=== PATIENT | male | born 1955 | race Caucasian/White ===

== ENCOUNTER → 2019-09-08 | Outpatient (CLI) | payer OTHER ==
--- NOTE | 2019-09-08 09:26 | MRI ---
EXAM DESCRIPTION: Lumbar Spine w/o Contrast : Magnetic Resonance Imaging. CLINICAL HISTORY: RADICULOPATHY COMPARISON: None. TECHNIQUE: Multiplanar, multiple standard sequences, non contrast MRI, lumbar spine. FINDINGS: L5-S1: The disc is well visualized on axial T2 series 501, image 3. Moderate disc space loss with disc desiccation. Anterior bulging and spurs. Diffuse endplate reactive changes are moderate. 3 mm grade 1 retrolisthesis. Prior partial laminectomy. Posterior midline bulge 4 mm. Narrowing of the subarticular recesses more right than left. Hypertrophic degenerative changes in the bilateral facet joints and left ligamentum flavum (canal elements) AP canal diameter 10 mm. Mild left foraminal stenosis and moderate right foraminal stenosis. L4-L5: Disc desiccation and minimal disc space loss. More on the right side with moderate endplate reactive changes. Minimal disc spur complex bulging into the foramina bilaterally. Minimal posterior decompression. Degenerative hypertrophy of the bilateral facet joints. Moderate foraminal narrowing bilaterally. L3-L4: Disc desiccation with minimal anterior bulge and minimal disc space loss. Minimal posterior bulging. Degenerative hypertrophy of the canal elements. AP canal diameter 12 mm. Mild left foraminal narrowing and moderate right foraminal narrowing. L2-L3: Normal signal in the disc with disc space preserved. Mild to moderate hypertrophy of the canal elements. Significant narrowing of the transverse canal diameter. AP canal diameter 9 mm. Mild bilateral foraminal narrowing. L1-L2: Disc space preserved with normal signal in the disc. Mild degenerative hypertrophy of the canal elements with moderate narrowing of the transverse diameter of the canal and mild to moderate AP canal narrowing. Bilateral foramina are patent. Conus terminates just above the disc space. T12-L1: Normal signal in the disc and disc space maintained. No bulging. Canal elements unremarkable. Foramina and canal are patent. Minimal lumbosacral levoscoliosis. Paravertebral soft tissues minimal paraspinal muscle atrophy.. Distal cord normal signal and caliber. Normal marrow signal in the remaining vertebral bodies and the posterior elements. Vertebral bodies are not compressed at any level. IMPRESSION: 1. Spondylosis, disc desiccation and disc space loss, disc spur complex formation and degenerative hypertrophy of the flavum ligaments and facet joints, particularly L3-4 down to L5-S1. 2. Moderate spondylosis L5-S1 and disc desiccation and disc space loss. Prior partial right laminectomy and decompression. Bilateral foraminal stenosis and encroachment on bilateral L5 nerve roots, and right subarticular recess narrowing or stenosis with possible involvement of the descending right S1 nerve. 3. Multifactorial mild central canal stenosis L2-L3. Electronically signed by: Scott Shah MD 09/08/2019 9:24 AM CDT
== END ==
LOC: MRI 06:50
PROVIDERS: ATTEND Psychiatry & Neurology Neurology
DX: M47.26 Other spondylosis with radiculopathy, lumbar region (principal); M51.36 Other intervertebral disc degeneration, lumbar region; M25.78 Osteophyte, vertebrae; M47.897 Other spondylosis, lumbosacral region; M48.061 Spinal stenosis, lumbar region without neurogenic claudication; Z98.890 Other specified postprocedural states

== ENCOUNTER → 2019-12-22 | Outpatient (CLI) | payer OTHER ==
--- NOTE | 2019-12-22 12:30 | RAD ---
EXAM DESCRIPTION: Pelvis x-ray one view CLINICAL HISTORY: 64 years Male, HIP PAIN RIGHT AND LEFT COMPARISON: None. FINDINGS: Degenerative narrowing of the disc spaces. Enthesopathy of the iliac crests. Degenerative narrowing of the SI joints and pubic symphysis. Moderate narrowing of the hip joints bilaterally with spurring at the inferior acetabular margins. No hip fracture or dislocation. IMPRESSION: Degenerative changes as described. Electronically signed by: Zafar Urena MD 12/22/2019 12:29 PM CDT
--- NOTE | 2019-12-22 12:33 | RAD ---
EXAM DESCRIPTION: Knee x-ray,Left Complete four views CLINICAL HISTORY: 64 years, Male, PAIN IN LEFT KNEE COMPARISON: None TECHNIQUE: Four x-ray views of the left knee standing FINDINGS: No fracture or dislocation. Bones appear normally mineralized with normal trabecular pattern. Narrowed appearance of medial compartment on frontal view with medial and lateral joint line spurring and spurring at the intracondylar notch and tibial spine. Lateral view shows normal position of the patella. Marked narrowing of the patellofemoral joint with posterior patellar spurring and anterior femoral trochlear spurring. Anterosuperior patellar enthesopathy. Small suprapatellar knee joint effusion. Normal contour of quadriceps and patellar tendons. 45 degree flexion view shows complete cartilage loss in the medial compartment with sclerosis and eburnation. Patellar sunrise view shows normal position of the patella with no abnormal subluxation. Prominent spurring of the posterior patella along the medial and lateral margins. Prominent anterior femoral trochlear marginal osteophyte formation especially medially. IMPRESSION: Advanced osteoarthrosis as described. Electronically signed by: Zafar Urena MD 12/22/2019 12:32 PM CDT
--- NOTE | 2019-12-22 12:43 | RAD ---
EXAM DESCRIPTION: Knee x-ray, Right Complete four views CLINICAL HISTORY: 64 years, Male, PAIN IN RIGHT KNEE COMPARISON: None TECHNIQUE: Four x-ray views of the right knee standing FINDINGS: No fracture or dislocation. Bones appear normally mineralized with normal trabecular pattern. Narrowed appearance of medial compartment on frontal view with spurring at the tibial spine. Lateral view shows normal position of the patella. Anterosuperior patellar enthesopathy with minimal posterior superior spurring No suprapatellar knee joint effusion. Normal contour of quadriceps and patellar tendons. Slight lateral patellar tilt without subluxation on patellar sunrise view. Spurring at the medial and lateral margins of the patella. IMPRESSION: Degenerative osteoarthrosis of the right knee. Electronically signed by: Zafar Urena MD 12/22/2019 12:42 PM CDT
== END | disposition home or self-care (01) ==
LOC: RAD 07:38
PROVIDERS: ATTEND Orthopaedic Surgery
DX: M25.561 Pain in right knee (principal); M25.562 Pain in left knee; M25.551 Pain in right hip; M25.552 Pain in left hip

== ENCOUNTER → 2020-01-19 | Outpatient (CLI) | payer OTHER | LOC: LAB.O 09:54 | PROVIDERS: ATTEND Orthopaedic Surgery | DX: Z01.818 Encounter for other preprocedural examination (principal) ==

== ENCOUNTER → 2020-01-29 | Outpatient (CLI) | payer OTHER | LOC: ECHO 09:05 | PROVIDERS: ATTEND Family Medicine | DX: R94.31 Abnormal electrocardiogram [ECG] [EKG] (principal); I51.7 Cardiomegaly ==

== ENCOUNTER 2020-05-01 11:09 | Emergency (ER) | payer OTHER ==
[2020-05-01 11:36] VITALS: BP 159/81; TEMP 98.9
[2020-05-01] MEDS ORDERED: KETOROLAC TROMETHAMINE INJ 30 MG/ML VIAL IM ONE (11:48)
--- NOTE | 2020-05-01 12:16 | RAD ---
EXAMINATION: Chest,1 View (accession [id number]), Shoulder,Left 2 or More Views (accession [id number]). HISTORY: 64 years Male. left clavicle pain s/p fall. . TECHNIQUE: XR CHEST 1 VIEW, XR SHOULDER 2 VIEWS COMPARISON: None. FINDINGS: LEFT SHOULDER: AC joint: Degenerative arthrosis with articular surface irregularity and marginal hypertrophy. Glenohumeral joint: No significant abnormality. Acromiohumeral interval: Degenerative cortical remodeling at undersurface of the acromion and the superior margin of the greater tuberosity. No acute fracture or dislocation is evident. IMPRESSION: No definite radiographic evidence of acute skeletal pathology Multifocal slight degenerative change CHEST: Severely limited examination due to very prominent soft tissue attenuation. The cardiac silhouette size is moderately enlarged without evidence of vascular congestion or alveolar pulmonary edema. Body habitus and cardiac enlargement obscures the left lower lung and left lung base, additionally limiting the examination. There is no evidence of pulmonary consolidation in the visualized portion of the chest. No pleural effusion noted on the right. Cannot exclude left pleural effusion since left lung base and CP angle are obscured. No radiographically visible pneumothorax. No acute displaced fracture in the visualized portion of the chest. IMPRESSION: Moderate cardiomegaly Examination severely limited as above described. Left lower lung and left lung base obscured. No definite acute pulmonary disease in the visualized portion of the chest. Electronically signed by: Christopher Mcdowell MD 05/01/2020 12:[address] [facility]
--- NOTE | 2020-05-01 12:16 | RAD ---
EXAMINATION: Chest,1 View (accession [id number]), Shoulder,Left 2 or More Views (accession [id number]). HISTORY: 64 years Male. left clavicle pain s/p fall. . TECHNIQUE: XR CHEST 1 VIEW, XR SHOULDER 2 VIEWS COMPARISON: None. FINDINGS: LEFT SHOULDER: AC joint: Degenerative arthrosis with articular surface irregularity and marginal hypertrophy. Glenohumeral joint: No significant abnormality. Acromiohumeral interval: Degenerative cortical remodeling at undersurface of the acromion and the superior margin of the greater tuberosity. No acute fracture or dislocation is evident. IMPRESSION: No definite radiographic evidence of acute skeletal pathology Multifocal slight degenerative change CHEST: Severely limited examination due to very prominent soft tissue attenuation. The cardiac silhouette size is moderately enlarged without evidence of vascular congestion or alveolar pulmonary edema. Body habitus and cardiac enlargement obscures the left lower lung and left lung base, additionally limiting the examination. There is no evidence of pulmonary consolidation in the visualized portion of the chest. No pleural effusion noted on the right. Cannot exclude left pleural effusion since left lung base and CP angle are obscured. No radiographically visible pneumothorax. No acute displaced fracture in the visualized portion of the chest. IMPRESSION: Moderate cardiomegaly Examination severely limited as above described. Left lower lung and left lung base obscured. No definite acute pulmonary disease in the visualized portion of the chest. Electronically signed by: Christopher Mcdowell MD 05/01/2020 12:14 PM [facility]
--- NOTE | 2020-05-01 12:44 | ED.PDOC ---
History of Present Illness - General Chief Complaint: Trauma Stated Complaint: R hamstring/L shoulder pain r/t a fall Time Seen by Provider: 05/01/20 11:47 Source: patient, RN notes reviewed, Vital Signs reviewed Exam Limitations: no limitations - History of Present Illness Initial Comments: Patient is a 64-year-old white male who slipped and fell yesterday and complains of right buttock pain and left shoulder pain. The pain is throbbing in nature. It is severe in intensity. It is constant. Worse with movement, nothing makes it better. Occurred: yesterday Severity: severe Pain Location: upper extremity, lower extremity Method of Injury: fall Improving Factors: nothing Worsening Factors: movement Loss of Consciousness: no loss of consciousness Associated Symptoms (Fall): denies symptoms Allergies/Adverse Reactions: Allergies NO KNOWN ALLERGY Allergy (Verified 05/01/20 11:37) Home Medications: Ambulatory Orders Methylprednisolone [Medrol Dose [place]] 4 mg PO DAILY 6 Days #21 tab 05/01/20 Review of Systems - Review of Systems Constitutional: States: no symptoms reported, see HPI. Denies: chills, fever, malaise, weakness EENTM: States: no symptoms reported. Denies: eye pain, blurred vision, throat pain Respiratory: States: no symptoms reported. Denies: cough, orthopnea, short of breath Cardiology: States: no symptoms reported. Denies: chest pain, edema, palpitations, syncope Gastrointestinal/Abdominal: States: no symptoms reported. Denies: abdominal pain, constipation, diarrhea Genitourinary: States: no symptoms reported. Denies: dysuria, frequency Musculoskeletal: States: see HPI, joint pain. Denies: neck pain Skin: States: no symptoms reported. Denies: change in color, rash Neurological: States: no symptoms reported. Denies: tingling, tremors, weakness Endocrine: States: no symptoms reported. Denies: increased hunger, increased thirst, increased urine Hematologic/Lymphatic: States: no symptoms reported. Denies: blood clots, easy bleeding All other Systems: Reviewed and Negative, No Change from Baseline Past Medical History (General) - Patient Medical History Hx Stroke: No Hx of COPD: No Hx Cardiac Disorders: No Hx Congestive Heart Failure: No Hx Hypertension: Yes Hx Diabetes: Yes Hx Gastroesophageal Reflux: Yes Hx Cancer: No Surgical History: other - Vaccination History Hx Influenza Vaccination: Yes Hx Pneumococcal Vaccination: Yes - Social History Hx Tobacco Use: No Hx Alcohol Use: No Hx Substance Use: No Hx Substance Use Treatment: No Hx Depression: No - Female History Patient is a Female of Child Bearing Age (10 -59 yrs old): No Patient : No Family Medical History - Family History Mother Family History: Unknown Physical Exam - Physical Exam General Appearance: Alert, Anxious, Well Developed, Well Groomed, Well Hydrated, Well Nourished Head Injury: no evidence of injury Eye Exam: bilateral normal ENT Exam: hearing grossly normal, no evidence of ENT injury, no dental injury Neck Exam: non-tender, full range of motion, normal alignment Cardiovascular/Respiratory: regular rate, rhythm, no M/R/G, normal peripheral pulses, no JVD, normal breath sounds, no respiratory distress Gastrointestinal/Abdominal: normal bowel sounds, non tender, soft, no organomegaly, no pulsatile mass Back Exam: normal inspection, no CVA tenderness, no vertebral tenderness, other - Tenderness to palpation over the right sciatic notch consistent with sciatica. Extremity Exam: pelvis stable, bony-point tenderness, other - Tenderness to palpation over the left clavicle and left shoulder. Additionally patient with tenderness to palpation over the right sciatic notch. 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 05/01/20 12:51 X-rays do not show any fractures. I suspect patient has a left shoulder girdle sprain. I have given patient instructions on RICE. Additionally have given patient instructions on increasing shoulder girdle mobility and exercise and stretching. I will send patient home on a Medrol Dosepak for his sciatica. Patient is to stop his steroids while he is taking the Medrol Dosepak. I discussed this plan of care with the patient he voices understanding and agreement. Rivera Ford M.D. #[id number] - Results/Orders Results/Orders: EXAMINATION: Chest,1 View (accession [id number]), Shoulder,Left 2 or More Views (accession [id number]). HISTORY: 64 years Male. left clavicle pain s/p fall. . TECHNIQUE: XR CHEST 1 VIEW, XR SHOULDER 2 VIEWS COMPARISON: None. FINDINGS: LEFT SHOULDER: AC joint: Degenerative arthrosis with articular surface irregularity and marginal hypertrophy. Glenohumeral joint: No significant abnormality. Acromiohumeral interval: Degenerative cortical remodeling at undersurface of the acromion and the superior margin of the greater tuberosity. No acute fracture or dislocation is evident. IMPRESSION: No definite radiographic evidence of acute skeletal pathology Multifocal slight degenerative change CHEST: Severely limited examination due to very prominent soft tissue attenuation. The cardiac silhouette size is moderately enlarged without evidence of vascular congestion or alveolar pulmonary edema. Body habitus and cardiac enlargement obscures the left lower lung and left lung base, additionally limiting the examination. There is no evidence of pulmonary consolidation in the visualized portion of the chest. No pleural effusion noted on the right. Cannot exclude left pleural effusion since left lung base and CP angle are obscured. No radiographically visible pneumothorax. No acute displaced fracture in the visualized portion of the chest. IMPRESSION: Moderate cardiomegaly Examination severely limited as above described. Left lower lung and left lung base obscured. No definite acute pulmonary disease in the visualized portion of the chest. Electronically signed by: Christopher Mcdowell MD 05/01/2020 12:14 PM Departure - Departure Clinical Impression: Sprain of shoulder girdle Fall Qualifiers: Encounter type: initial encounter Qualified Code(s): W19.XXXA - Unspecified fall, initial encounter Sciatica Qualifiers: Laterality: right Qualified Code(s): M54.31 - Sciatica, right side Time of Disposition: 12:55 Disposition: Discharge to Home or Self Care Condition: Good Departure Forms: ED Discharge - Pt. Copy, Patient Portal Self Enrollment Instructions: DI for Trauma, Sciatica (DC), Shoulder Sprain (DC), How to Make a Hot/Cold Rice Pack Diet: resume usual diet Activity: increase activity as tolerated Referrals: Marcellus Aguilar MD [Primary Care Provider] - 1-5 Days Prescriptions: Methylprednisolone [Medrol Dose [place]] 4 mg PO DAILY 6 Days #21 tab Home Medications: Ambulatory Orders Methylprednisolone [Medrol Dose [place]] 4 mg PO DAILY 6 Days #21 tab 05/01/20
[2020-05-01 13:10] VITALS: O2SAT 98
== END 2020-05-01 13:03 | disposition home or self-care (01) ==
LOC: ER 11:09
DX: S43.402A Unspecified sprain of left shoulder joint, initial encounter (principal); M54.31 Sciatica, right side; E11.9 Type 2 diabetes mellitus without complications; I10 Essential (primary) hypertension; K21.9 Gastro-esophageal reflux disease without esophagitis; W01.0XXA Fall on same level from slipping, tripping and stumbling without subsequent striking against object, initial encounter; Y92.9 Unspecified place or not applicable

== ENCOUNTER → 2020-05-26 | Outpatient (CLI) | payer OTHER | LOC: LAB.O 08:34 | PROVIDERS: ATTEND Internal Medicine Rheumatology | DX: L40.51 Distal interphalangeal psoriatic arthropathy (principal); L40.1 Generalized pustular psoriasis ==

== ENCOUNTER → 2020-05-27 | Outpatient (CLI) | payer OTHER | LOC: LAB.O 08:35 | PROVIDERS: ATTEND Family Medicine | DX: I10 Essential (primary) hypertension (principal); R73.9 Hyperglycemia, unspecified ==

== ENCOUNTER → 2020-06-09 | Outpatient (CLI) | payer OTHER | LOC: GMAM 12:47 | PROVIDERS: ATTEND Family Medicine | DX: D64.9 Anemia, unspecified (principal); E53.8 Deficiency of other specified B group vitamins; E55.9 Vitamin D deficiency, unspecified ==